=== PATIENT | male | born 1935 | race Caucasian/White ===

== ENCOUNTER 2017-10-20 07:29 | Observation (INO) | payer MEDICARE ==
[2017-10-19 10:19] LABS: BASOPHILS % (AUTO) 0.6 % (0.0-5.0); EOSINOPHILS % (AUTO) 1.4 % (0.0-8.0); LYMPHOCYTES % (AUTO) 18.5 % (21.0-51.0); MEAN CORPUSCULAR HEMOGLOBIN 29.8 pg (27.0-33.0); MEAN CORPUSCULAR HGB CONC 33.2 g/dL (32.0-36.0); MEAN CORPUSCULAR VOLUME 89.9 fL (79-99); MONOCYTES % (AUTO) 7.2 % (3.0-13.0); NEUTROPHILS % (AUTO) 72.3 % (40.0-77.0); NUCLEATED RED BLOOD CELLS 0.1 % (0.0-0.19); PLATELET COUNT (AUTO) 185 K/uL (130-400); RED BLOOD CELL COUNT(AUTO) 5.22 MIL/uL (4.50-6.20); RED CELL DISTRIBUTION WIDTH 13.8 % (11.0-15.5); WHITE BLOOD COUNT (AUTO) 8.5 K/uL (4.8-10.8)
[2017-10-19 10:22] LABS: APPEARANCE,URINE Clear (CLEAR); BILIRUBIN,URINE Negative (NEGATIVE); COLOR,URINE Yellow (YELLOW); GLUCOSE, URINE (UA) 500 mg/dL (NEGATIVE); KETONES,URINE Negative (NEGATIVE); LEUKOCYTE ESTERASE ,URINE Trace (NEGATIVE); NITRATE,URINE Negative (NEGATIVE); OCCULT BLOOD,URINE Negative (NEGATIVE); PROTEIN,URINE POS 1+ (NEGATIVE); UROBILINOGEN,URINE 0.2 mg/dL (0.2-1.0)
[2017-10-19 10:26] LABS: CREATININE 1.6 mg/dL (0.5-1.5)
[2017-10-19 10:29] LABS: INR 0.96 (0.85-1.15); PARTIAL THROMBOPLASTIN TIME 27.2 SEC (26.3-35.5); PROTHROMBIN TIME 10.1 SEC (9.6-11.6)
[2017-10-19 10:32] LABS: BACTERIA,URINE Rare /HPF (None Seen); RBC,URINE 0-1 /HPF (0-1); SQUAMOUS EPITHELIAL CELL,UR Rare /LPF (0-2); WBC,URINE 0-1 /HPF (0-1)
[2017-10-19 10:58] VITALS: BP 136/67
[2017-10-20] VITALS (9 sets, daily range): BP systolic 106–158; BP diastolic 55–100
[~2017-10-20] VITALS: Ht 179.1 cm; Wt 103.7 kg
[~2017-10-20 07:29] MED LIST: ASPI-1197 PO; CINNAMON PO; CYCL5TAB PO; GLIM4TAB3 PO; LOSA50TA37 PO; OMEG-125 PO; SAW450CA7 PO; SIMV20TA6 PO; TAMS-1 PO; TORS20TA4 PO; ZINC50TA38 PO; [UNRECOGNIZED DRUG - OTHER] PO
[2017-10-20] MEDS ORDERED: SODIUM CHLORIDE 0.9% 1000ML 1,000 ML IV ONE (08:46)
[2017-10-20] MEDS ORDERED: NITROGLYCERIN 5 MG/ML 10 ML VIAL IV ONE (13:51)
[2017-10-20] MEDS ORDERED: ISOVUE-300 100 ML VIAL IV ONE (13:51)
[2017-10-20] MEDS ORDERED: HEPARIN SODIUM 1000UNIT/ML 10ML VIAL ONE (13:52)
[2017-10-20] MEDS ORDERED: LIDOCAINE HCL 2% 20ML ONE (13:52)
[2017-10-20] MEDS ORDERED: HYDRALAZINE HCL 20 MG/ML VIAL ONE ×2 (14:51→14:54)
[2017-10-20] MEDS ORDERED: DEXTROSE 50%-WATER 50 ML DISP.SYRIN IV PRN (15:15)
[2017-10-20] MEDS ORDERED: GLUCAGON 1MG KIT 1 MG ML IM PRN (15:15)
[2017-10-20] MEDS ORDERED: SODIUM CHLORIDE 0.9% 1000ML 1,000 ML IV SCH (15:15)
[2017-10-20] MEDS ORDERED: CLOPIDOGREL BISULFATE 300 MG TAB ONE (15:19)
[2017-10-20] MEDS ORDERED: CLOP75TA32 PO (15:24)
[2017-10-20] MEDS ORDERED: ATOR40TA71 PO (15:24)
[2017-10-20] MEDS ORDERED: ACETAMINOPHEN-CODEINE 300/30MG TAB PO PRN (19:00)
[2017-10-21 00:30] VITALS: BP 88/55
[2017-10-21 03:52] LABS: HEMATOCRIT 40.7 % (42-54); MEAN CORPUSCULAR HEMOGLOBIN 30.4 pg (27.0-33.0); MEAN CORPUSCULAR HGB CONC 34.2 g/dL (32.0-36.0); MEAN CORPUSCULAR VOLUME 88.8 fL (79-99); PLATELET COUNT (AUTO) 191 K/uL (130-400); RED BLOOD CELL COUNT(AUTO) 4.58 MIL/uL (4.50-6.20); RED CELL DISTRIBUTION WIDTH 14.2 % (11.0-15.5); WHITE BLOOD COUNT (AUTO) 8.2 K/uL (4.8-10.8)
[2017-10-21 04:05] VITALS: BP 165/85
[2017-10-21 04:07] LABS: CREATININE 1.9 mg/dL (0.5-1.5); POTASSIUM 4.1 mmol/L (3.5-5.1)
[2017-10-21] MEDS ORDERED: CLOPIDOGREL BISULFATE 75 MG TAB PO SCH (09:00)
[2017-10-21] MEDS ORDERED: ASPIRIN 81MG TAB.CHEW PO SCH (09:00)
[2017-10-21 10:03] VITALS: BP 107/74
[2017-10-21 12:45] VITALS: BP 130/72
== END 2017-10-21 13:15 | disposition home or self-care (01) ==
LOC: DAH 07:29 → DAHIP 07:30 → DAH 07:30 → 2AH 16:00 → 3CH 22:57
PROVIDERS: ADMIT Internal Medicine Cardiovascular Disease; ATTEND Internal Medicine Cardiovascular Disease
DX: I74.5 Embolism and thrombosis of iliac artery (principal); E11.9 Type 2 diabetes mellitus without complications
CPT/HCPCS: 36415 ×2; 37220; 71045; 75625; 75710; 75716; 80048 ×2; 80061; 81001; 82948 ×5; 85025; 85027; 85610; 85730; 93005; A4606; C1725; C1760 ×2; C1769; C1894 ×2; G0378 ×30; J0360 ×2; J1644 ×2; J3490 ×2; J7030; Q9967

== ENCOUNTER → 2017-11-09 | Outpatient (CLI) | payer MEDICARE ==
[~2017-11-09] MED LIST changes: +ATOR40TA71 PO; +CLOP75TA32 PO; -SIMV20TA6 PO
== END ==
LOC: OIH 14:42
PROVIDERS: ATTEND Internal Medicine
DX: M79.642 Pain in left hand (principal)
CPT/HCPCS: 73130